=== PATIENT | female | born 1945 | race Caucasian/White ===

== ENCOUNTER 2017-11-14 12:58 | Emergency (ER) | payer OTHER, MEDICARE, BC ==
[~2017-11-14] VITALS: Ht 157.5 cm; Wt 61.2 kg
[~2017-11-14 12:58] MED LIST: AMIO200 PO; AMLO5 PO; ASPI81EC PO; AVISTA; CARV25 PO; CARV3.125 PO; CETI5 PO; DIGO.25 PO; FISH1000 PO; HTN MEDS; LISI20 PO; LISI5 PO; LOPE2C PO; Norco 5-325 Ta1 EACH PO; OMEP20ER PO; OXYACE5T PO; PROM25 PO; RALO60 PO; RHINOCORT ALL8.43 ML NS; RXOXYACE PO; RXPROM25 PO; SPIR25 PO; TORSE20 PO; VITAMIN D31000 UNIT PO; WARF3 PO; WARF4 PO; WARF5 PO; Zofran Odt4 MG SL; [UNRECOGNIZED DRUG - OTHER]; [UNRECOGNIZED DRUG - REMARK]; [UNRECOGNIZED DRUG - REMARK]
[2017-11-14] MEDS ORDERED: ELIQUIS5 MG PO (14:13)
== END 2017-11-14 14:36 | disposition home or self-care (01) ==
LOC: ER 12:58
DX: S61.511A Laceration without foreign body of right wrist, initial encounter (principal); S01.311A Laceration without foreign body of right ear, initial encounter; Z23 Encounter for immunization; I10 Essential (primary) hypertension; I48.91 Unspecified atrial fibrillation; Z79.01 Long term (current) use of anticoagulants; Z88.5 Allergy status to narcotic agent; Z79.899 Other long term (current) drug therapy; V49.50XA Passenger injured in collision with unspecified motor vehicles in traffic accident, initial encounter
CPT/HCPCS: 70450; 71046; 73110; 90714; 93005; 93010; 96372; 99285-25

== ENCOUNTER 2019-10-03 19:19 | Emergency (ER) | payer MEDICARE, BC, OTHER ==
[~2019-10-03] VITALS: Ht 154.9 cm; Wt 68.0 kg
[~2019-10-03 19:19] MED LIST changes: +ELIQUIS5 MG PO
[2019-10-03 19:59] LABS: BASOPHILS ABSOLUTE AUTO 0.04 K/mm3 (0.00-0.23); BASOPHILS PERCENT AUTO 1 % (0-2); EOSINOPHILS ABSOLUTE AUTO 0.03 K/mm3 (0.00-0.68); EOSINOPHILS PERCENT AUTO 0 % (0-6); Hematocrit 43.1 % (33.0-51.0); IMMATURE GRAN ABSOLUTE AUTO 0.03 K/mm3 (0.00-0.10); IMMATURE GRAN PERCENT AUTO 0 % (0-1); LYMPHOCYTES ABSOLUTE AUTO 1.79 K/mm3 (0.84-5.20); LYMPHOCYTES PERCENT AUTO 22 % (21-46); MONOCYTES ABSOLUTE AUTO 0.45 K/mm3 (0.16-1.47); MONOCYTES PERCENT AUTO 6 % (4-13); Mean Corpuscular HGB 28.9 pg (26.0-34.0); Mean Corpuscular HGB Conc 32.5 g/dL (31.5-36.5); Mean Corpuscular Volume 89 fL (80-100); Mean Platelet Volume 11.1 fL (9.1-12.4); NEUTROPHILS ABSOLUTE AUTO 5.75 K/mm3 (1.96-9.15); NEUTROPHILS PERCENT AUTO 71 % (41-73); Platelet Count 246 K/mm3 (150-400); RDW Coefficient Variation 14.4 % (11.7-14.2); RDW Standard Deviation 46.5 fL (35.1-46.3); Red Blood Cell Count 4.85 M/mm3 (3.80-5.20); White Blood Cell Count 8.09 K/mm3 (4.00-11.30)
[2019-10-03 20:26] LABS: Alanine Aminotransfer (ALT/SGP 23 U/L (12-78); Albumin, Blood 3.7 g/dL (3.4-5.0); Albumin/Globulin Ratio 0.9 (0.8-1.8); Alk Phos 79 U/L (50-136); Anion Gap 5 mmol/L (6-16); Aspartate Aminotrans (AST/SGOT 18 U/L (12-37); Bilirubin, Total 0.3 mg/dL (0.1-1.0); Blood Urea Nitrogen 16 mg/dL (8-24); Bun/Creatinine Ratio 19.8 (12.0-20.0); CO2, Blood 24 mmol/L (21-32); Calcium, Blood 8.8 mg/dL (8.5-10.1); Chloride, Blood 103 mmol/L (98-108); Creatinine, Blood 0.81 mg/dL (0.40-1.00); Globulin, Blood 4.1 g/dL (2.2-4.0); Glomerular Filtration Rate >60 (60-); Glucose, Blood 175 mg/dL (70-99); Potassium, Blood 4.2 mmol/L (3.5-5.5); Sodium, Blood 132 mmol/L (136-145); Total Protein, Blood 7.8 g/dL (6.4-8.2); Troponin I <0.015 ng/mL (0.000-0.040)
[2019-10-03 20:39] LABS: Digoxin (Lanoxin) 0.65 ug/mL (0.80-2.00)
== END 2019-10-03 22:20 | disposition home or self-care (01) ==
LOC: ER 19:19
PROVIDERS: Emergency Medicine
DX: I48.92 Unspecified atrial flutter (principal); I48.91 Unspecified atrial fibrillation; I10 Essential (primary) hypertension; Z87.891 Personal history of nicotine dependence; Z88.5 Allergy status to narcotic agent; Z79.899 Other long term (current) drug therapy; Z79.01 Long term (current) use of anticoagulants; Z95.0 Presence of cardiac pacemaker
CPT/HCPCS: 36415; 71046; 80053; 80162; 83690; 84484; 85025; 93005; 93010; 96374; 99285-25; J1160; J7030

== ENCOUNTER 2021-01-27 16:04 | Emergency (ER) | payer MEDICARE, BC, OTHER ==
[~2021-01-27] VITALS: Ht 154.9 cm; Wt 72.6 kg
[~2021-01-27 16:04] MED LIST changes: +Amiodarone HCl200 MG PO; +ERGO50000 PO; +FLAX SEED OIL1000 MG PO; +MONT10T PO; -VITAMIN D31000 UNIT PO
[2021-01-27] MEDS ORDERED: Amiodarone HCl200 MG PO (16:27)
[2021-01-27 16:35] LABS: BASOPHILS ABSOLUTE AUTO 0.04 K/mm3 (0.00-0.23); BASOPHILS PERCENT AUTO 1 % (0-2); EOSINOPHILS ABSOLUTE AUTO 0.07 K/mm3 (0.00-0.68); EOSINOPHILS PERCENT AUTO 1 % (0-6); Hematocrit 41.7 % (33.0-51.0); Hemoglobin 13.4 g/dL (11.5-16.0); IMMATURE GRAN ABSOLUTE AUTO 0.02 K/mm3 (0.00-0.10); IMMATURE GRAN PERCENT AUTO 0 % (0-1); LYMPHOCYTES ABSOLUTE AUTO 1.89 K/mm3 (0.84-5.20); LYMPHOCYTES PERCENT AUTO 24 % (21-46); MONOCYTES ABSOLUTE AUTO 0.72 K/mm3 (0.16-1.47); MONOCYTES PERCENT AUTO 9 % (4-13); Mean Corpuscular HGB 28.2 pg (26.0-34.0); Mean Corpuscular HGB Conc 32.1 g/dL (31.5-36.5); Mean Corpuscular Volume 88 fL (80-100); NEUTROPHILS ABSOLUTE AUTO 5.31 K/mm3 (1.96-9.15); NEUTROPHILS PERCENT AUTO 66 % (41-73); Platelet Count 249 K/mm3 (150-400); RDW Coefficient Variation 14.7 % (11.7-14.2); RDW Standard Deviation 47.6 fL (35.1-46.3); Red Blood Cell Count 4.75 M/mm3 (3.80-5.20); White Blood Cell Count 8.05 K/mm3 (4.00-11.30)
[2021-01-27 16:55] LABS: Albumin, Blood 3.5 g/dL (3.4-5.0); Albumin/Globulin Ratio 0.9 (0.8-1.8); Bilirubin, Total 0.3 mg/dL (0.1-1.0); Bun/Creatinine Ratio 16.8 (12.0-20.0); Calcium, Blood 8.9 mg/dL (8.5-10.1); Creatinine, Blood 0.95 mg/dL (0.40-1.00); Globulin, Blood 3.7 g/dL (2.2-4.0); Potassium, Blood 4.3 mmol/L (3.5-5.5); Total Protein, Blood 7.2 g/dL (6.4-8.2)
== END 2021-01-27 20:17 | disposition home or self-care (01) ==
LOC: ER 16:04
PROVIDERS: Student in an Organized Health Care Education/Training Program
DX: I48.91 Unspecified atrial fibrillation (principal); I10 Essential (primary) hypertension; Z88.5 Allergy status to narcotic agent; Z79.899 Other long term (current) drug therapy; Z79.01 Long term (current) use of anticoagulants
CPT/HCPCS: 80053; 84484; 85025; 92960; 93005; 93010; 96374-59; 99285-25; J2405; J3010; J7030

== ENCOUNTER 2021-05-15 06:15 | Day surgery (SDC) | payer MEDICARE, BC, OTHER ==
[~2021-05-15] VITALS: Ht 157.5 cm; Wt 80.0 kg
--- NOTE | 2021-05-15 08:30 | NUR ---
PT VERBALIZES UNDERSTANDING WRITTEN AND VERBAL INSTRUCTIONS. VSS. IV DC'D. CATH INTACT PRESSURE BANDAGE. PT DC TO HOME VIA / BY WC
== END 2021-05-15 22:37 | disposition home or self-care (01) ==
LOC: MHTC 06:15
DX: I48.0 Paroxysmal atrial fibrillation (principal); I42.0 Dilated cardiomyopathy; I34.0 Nonrheumatic mitral (valve) insufficiency; I10 Essential (primary) hypertension; E66.9 Obesity, unspecified; K21.9 Gastro-esophageal reflux disease without esophagitis; Z95.810 Presence of automatic (implantable) cardiac defibrillator; Z88.5 Allergy status to narcotic agent; Z79.01 Long term (current) use of anticoagulants; Z87.891 Personal history of nicotine dependence; Z68.33 Body mass index [BMI] 33.0-33.9, adult
CPT/HCPCS: 92961; 93005; 93010; J2704; J7120

== ENCOUNTER 2022-04-11 08:27 | Day surgery (SDC) | payer MEDICARE, BC, OTHER ==
[~2022-04-11] VITALS: Ht 154.9 cm; Wt 63.0 kg
--- NOTE | 2022-04-11 09:27 | NUR ---
DR. BARKLEY AND THE AT THE BESIDE TO MEET WITH THE PATIENT PREPROCEDURE. ALL QUESTIONS ANSWERED. CHART REVEIWED.
--- NOTE | 2022-04-11 11:00 | NUR ---
1035 PATIENT RETURNED FROM THE [employer]ER IN A RECLINER AND PLACED ON THE MONITOR, CALL LIGHT IN REACH. SITTING UP IN A RECLINER, DENIES ANY SHORTNESS OF BREATH OR CHEST PRESSURE AT THIS TIME.
--- NOTE | 2022-04-11 11:05 | NUR ---
DR BARKLEY AT THE BEDSIDE AND SPOKE WITH THE FAMILY, PATIENT, AND DAUGHTER. ALL QUESTIONS ANSWERED.
--- NOTE | 2022-04-11 12:08 | NUR ---
PATIENT BLOOD PRESSURE LOW BUT ASYMPTOMATIC. FAMILY IN AND OUT. BEGAN TAKING AIR FROM THE TR BAND, NO BLEEDING NOTED. PLETH 97%.
--- NOTE | 2022-04-11 12:19 | NUR ---
CONTINUE TO REMOVED AIR. NO BLEEDING, NO HEMATOMA.
--- NOTE | 2022-04-11 12:44 | NUR ---
TR BAND IS FLAT. REVEIWED DISCHARGE INSTRUCTIONS WITH THE PATIENT AND HER . FOLLOW UP APPOINTMENT IS 04/25/2022 @ 0830 AM. PATIENT IS INSTRUCTED TO RESTART ELIQUIS IN THE AM.
--- NOTE | 2022-04-11 12:58 | NUR ---
PATIENT IS UP AND OFF MONITOR, TO THE RESTROOM. NO DIZZINESS, NO PAIN NOTED. BACK TO THE BEDSIDE AND DRESSING.
--- NOTE | 2022-04-11 13:23 | NUR ---
PATIENT PIV REMOVED AND CATH TIP INTACT. PRESSURE DRESSING APPLIED. TR BAND REMOVED AND SITE CLEANED AND CLOTH DOT APPLIED. WHITE BOARD REPLACED AND DISCHARGED HOME WITH FOLLOW UP APPOINTMENT AND ALL DISCHARGE INSTRUCTIONS AND MEDICATIONS LISTED. DISCHARGED VIA WHEELCHAIR WITH HEAD DOFFER.
== END 2022-04-11 13:45 | disposition home or self-care (01) ==
LOC: MHTC 08:27
DX: I11.0 Hypertensive heart disease with heart failure (principal); I50.20 Unspecified systolic (congestive) heart failure; I48.0 Paroxysmal atrial fibrillation; Z95.810 Presence of automatic (implantable) cardiac defibrillator; Z88.5 Allergy status to narcotic agent; Z79.01 Long term (current) use of anticoagulants
CPT/HCPCS: 76937; 93454; 99152; 99153; A9270; C1769; C1887; C1894; J1644; J2250; J3010; J7030; J7050; Q9967

== ENCOUNTER 2023-01-15 21:35 | Emergency (ER) | payer MEDICARE, BC, OTHER ==
[~2023-01-15] VITALS: Ht 154.9 cm; Wt 61.2 kg
[2023-01-15 22:09] LABS: BASOPHILS ABSOLUTE AUTO 0.06 K/mm3 (0.00-0.23); BASOPHILS PERCENT AUTO 1 % (0-2); EOSINOPHILS ABSOLUTE AUTO 0.12 K/mm3 (0.00-0.68); EOSINOPHILS PERCENT AUTO 2 % (0-6); Hemoglobin 14.5 g/dL (11.5-16.0); IMMATURE GRAN ABSOLUTE AUTO 0.01 K/mm3 (0.00-0.10); IMMATURE GRAN PERCENT AUTO 0 % (0-1); LYMPHOCYTES ABSOLUTE AUTO 3.03 K/mm3 (0.84-5.20); LYMPHOCYTES PERCENT AUTO 39 % (21-46); MONOCYTES PERCENT AUTO 12 % (4-13); Mean Corpuscular HGB 29.6 pg (26.0-34.0); Mean Corpuscular Volume 90 fL (80-100); Mean Platelet Volume 10.3 fL (9.1-12.4); NEUTROPHILS PERCENT AUTO 47 % (41-73); Platelet Count 222 K/mm3 (150-400); RDW Coefficient Variation 14.4 % (11.7-14.2); RDW Standard Deviation 47.7 fL (35.1-46.3); White Blood Cell Count 7.72 K/mm3 (4.00-11.30)
[2023-01-15 22:32] LABS: Albumin, Blood 3.4 g/dL (3.4-5.0); Albumin/Globulin Ratio 0.9 (0.8-1.8); Bilirubin, Total 0.3 mg/dL (0.1-1.0); Calcium, Blood 8.5 mg/dL (8.5-10.1); Creatinine, Blood 1.05 mg/dL (0.40-1.00); Globulin, Blood 3.9 g/dL (2.2-4.0); Potassium, Blood 4.2 mmol/L (3.5-5.5); Total Protein, Blood 7.3 g/dL (6.4-8.2)
[2023-01-16 00:30] VITALS: BP 111/59
== END 2023-01-16 01:30 | disposition home or self-care (01) ==
LOC: ER 21:35
PROVIDERS: Physician Assistant
DX: I48.0 Paroxysmal atrial fibrillation (principal); I10 Essential (primary) hypertension; Z88.5 Allergy status to narcotic agent; Z91.048 Other nonmedicinal substance allergy status; Z79.01 Long term (current) use of anticoagulants; Z79.899 Other long term (current) drug therapy
CPT/HCPCS: 71046; 80053; 84484; 85025; 93005; 93010; 99285-25

== ENCOUNTER 2024-01-29 19:24 | Emergency (ER) | payer MEDICARE, BC, OTHER ==
[~2024-01-29] VITALS: Ht 152.4 cm; Wt 63.5 kg
[2024-01-29] MEDS ORDERED: Ondansetron HCl 2 MG / ML 2ML Vial IV PRN (19:40)
[2024-01-29 19:56] LABS: BASOPHILS ABSOLUTE AUTO 0.05 K/mm3 (0.00-0.23); BASOPHILS PERCENT AUTO 1 % (0-2); EOSINOPHILS PERCENT AUTO 1 % (0-6); Hematocrit 46.8 % (33.0-51.0); Hemoglobin 15.1 g/dL (11.5-16.0); IMMATURE GRAN ABSOLUTE AUTO 0.02 K/mm3 (0.00-0.10); IMMATURE GRAN PERCENT AUTO 0 % (0-1); LYMPHOCYTES ABSOLUTE AUTO 2.69 K/mm3 (0.84-5.20); LYMPHOCYTES PERCENT AUTO 34 % (21-46); MONOCYTES ABSOLUTE AUTO 0.77 K/mm3 (0.16-1.47); MONOCYTES PERCENT AUTO 10 % (4-13); Mean Corpuscular HGB Conc 32.3 g/dL (31.5-36.5); Mean Corpuscular Volume 90 fL (80-100); Mean Platelet Volume 10.3 fL (9.1-12.4); NEUTROPHILS ABSOLUTE AUTO 4.38 K/mm3 (1.96-9.15); NEUTROPHILS PERCENT AUTO 55 % (41-73); Platelet Count 220 K/mm3 (150-400); RDW Coefficient Variation 15.4 % (11.7-14.2); RDW Standard Deviation 51.1 fL (35.1-46.3); White Blood Cell Count 8.01 K/mm3 (4.00-11.30)
[2024-01-29 20:37] LABS: Albumin, Blood 3.7 g/dL (3.4-5.0); Bilirubin, Total 0.5 mg/dL (0.1-1.0); Bun/Creatinine Ratio 13.9 (12.0-20.0); Calcium, Blood 8.9 mg/dL (8.5-10.1); Creatinine, Blood 1.01 mg/dL (0.40-1.00); Free Thyroxine 1.61 ng/dL (0.70-1.60); Globulin, Blood 3.8 g/dL (2.2-4.0); Potassium, Blood 4.1 mmol/L (3.5-5.5); Thyroid Stimulating Hormone 4.24 uIU/mL (0.360-4.800); Total Protein, Blood 7.5 g/dL (6.4-8.2)
[2024-01-29 20:43] LABS: Prothrombin Time Results 10.7 Sec (9.7-11.5)
[2024-01-29 20:45] VITALS: BP 99/60
== END 2024-01-29 21:27 | disposition home or self-care (01) ==
LOC: ER 19:24
PROVIDERS: Student in an Organized Health Care Education/Training Program
DX: R00.2 Palpitations (principal); I10 Essential (primary) hypertension; Z79.899 Other long term (current) drug therapy; Z88.5 Allergy status to narcotic agent; Z91.048 Other nonmedicinal substance allergy status
CPT/HCPCS: 71046; 80053; 83690; 84439; 84443; 84484; 85025; 85610; 93005; 93010; 99285-25

== ENCOUNTER 2024-09-01 16:15 | Emergency (ER) | payer MEDICARE, BC, OTHER ==
[~2024-09-01] VITALS: Ht 154.9 cm; Wt 65.8 kg
[2024-09-01 16:25] VITALS: BP 151/89
[2024-09-01 16:52] LABS: BASOPHILS ABSOLUTE AUTO 0.05 K/mm3 (0.00-0.23); BASOPHILS PERCENT AUTO 1 % (0-2); EOSINOPHILS ABSOLUTE AUTO 0.11 K/mm3 (0.00-0.68); EOSINOPHILS PERCENT AUTO 2 % (0-6); Hematocrit 43.7 % (33.0-51.0); Hemoglobin 14.4 g/dL (11.5-16.0); IMMATURE GRAN ABSOLUTE AUTO 0.03 K/mm3 (0.00-0.10); IMMATURE GRAN PERCENT AUTO 0 % (0-1); LYMPHOCYTES ABSOLUTE AUTO 2.36 K/mm3 (0.84-5.20); LYMPHOCYTES PERCENT AUTO 32 % (21-46); MONOCYTES ABSOLUTE AUTO 0.74 K/mm3 (0.16-1.47); MONOCYTES PERCENT AUTO 10 % (4-13); Mean Corpuscular HGB 29.6 pg (26.0-34.0); Mean Corpuscular Volume 90 fL (80-100); Mean Platelet Volume 10.2 fL (9.1-12.4); NEUTROPHILS ABSOLUTE AUTO 4.19 K/mm3 (1.96-9.15); NEUTROPHILS PERCENT AUTO 56 % (41-73); Platelet Count 212 K/mm3 (150-400); RDW Coefficient Variation 15.2 % (11.7-14.2); RDW Standard Deviation 50.3 fL (35.1-46.3); Red Blood Cell Count 4.87 M/mm3 (3.80-5.20); White Blood Cell Count 7.48 K/mm3 (4.00-11.30)
[2024-09-01 17:17] LABS: Albumin, Blood 3.6 g/dL (3.4-5.0); Bilirubin, Total 0.3 mg/dL (0.1-1.0); Bun/Creatinine Ratio 18.8 (12.0-20.0); Calcium, Blood 8.9 mg/dL (8.5-10.1); Creatinine, Blood 1.01 mg/dL (0.40-1.00); Globulin, Blood 3.6 g/dL (2.2-4.0); Potassium, Blood 4.1 mmol/L (3.5-5.5); Total Protein, Blood 7.2 g/dL (6.4-8.2)
== END 2024-09-01 18:09 | disposition home or self-care (01) ==
LOC: ER 16:15
PROVIDERS: Emergency Medicine
DX: I48.0 Paroxysmal atrial fibrillation (principal)
CPT/HCPCS: 71046; 80053; 84484; 85025; 93005; 93010; 99285-25

== ENCOUNTER 2024-09-20 16:30 | Emergency (ER) | payer MEDICARE, BC, OTHER ==
[~2024-09-20] VITALS: Ht 154.9 cm; Wt 65.8 kg
[2024-09-20] MEDS ORDERED: Diltiazem HCl 5 MG / ML 5ML Vial IV ONE (16:50)
[2024-09-20 17:28] LABS: Albumin, Blood 3.1 g/dL (3.4-5.0); Albumin/Globulin Ratio 0.6 (0.8-1.8); Bilirubin, Total 0.5 mg/dL (0.1-1.0); Bun/Creatinine Ratio 15.9 (12.0-20.0); Calcium, Blood 9.6 mg/dL (8.5-10.1); Creatinine, Blood 1.13 mg/dL (0.40-1.00); Globulin, Blood 5.3 g/dL (2.2-4.0); Potassium, Blood 4.2 mmol/L (3.5-5.5); Total Protein, Blood 8.4 g/dL (6.4-8.2)
[2024-09-20 18:05] LABS: BASOPHILS ABSOLUTE AUTO 0.04 K/mm3 (0.00-0.23); BASOPHILS PERCENT AUTO 1 % (0-2); EOSINOPHILS ABSOLUTE AUTO 0.11 K/mm3 (0.00-0.68); EOSINOPHILS PERCENT AUTO 1 % (0-6); Hematocrit 43.6 % (33.0-51.0); Hemoglobin 14.2 g/dL (11.5-16.0); IMMATURE GRAN ABSOLUTE AUTO 0.03 K/mm3 (0.00-0.10); IMMATURE GRAN PERCENT AUTO 0 % (0-1); LYMPHOCYTES ABSOLUTE AUTO 2.92 K/mm3 (0.84-5.20); LYMPHOCYTES PERCENT AUTO 36 % (21-46); MONOCYTES PERCENT AUTO 10 % (4-13); Mean Corpuscular HGB 29.5 pg (26.0-34.0); Mean Corpuscular HGB Conc 32.6 g/dL (31.5-36.5); Mean Corpuscular Volume 91 fL (80-100); NEUTROPHILS ABSOLUTE AUTO 4.14 K/mm3 (1.96-9.15); NEUTROPHILS PERCENT AUTO 51 % (41-73); Platelet Count 226 K/mm3 (150-400); RDW Coefficient Variation 14.9 % (11.7-14.2); RDW Standard Deviation 49.7 fL (35.1-46.3); Red Blood Cell Count 4.82 M/mm3 (3.80-5.20); White Blood Cell Count 8.04 K/mm3 (4.00-11.30)
[2024-09-20 18:27] VITALS: BP 112/66
[2024-09-20] MEDS ORDERED: ENTRESTO 24 MG1 EAC3 PO (23:43)
[2024-09-20] MEDS ORDERED: JARDIANCE10 MG PO (23:43)
[2024-09-21] MEDS ORDERED: DIGOX125 MC1 PO (13:08)
== END 2024-09-20 18:28 | disposition home or self-care (01) ==
LOC: ER 16:30
PROVIDERS: Emergency Medicine
DX: I48.91 Unspecified atrial fibrillation (principal); I10 Essential (primary) hypertension; Z79.01 Long term (current) use of anticoagulants; Z79.899 Other long term (current) drug therapy; Z88.5 Allergy status to narcotic agent; Z91.048 Other nonmedicinal substance allergy status; Z87.891 Personal history of nicotine dependence; Z95.810 Presence of automatic (implantable) cardiac defibrillator
CPT/HCPCS: 71045; 80053; 85025; 93005; 93010; 96374; 99285-25

== ENCOUNTER 2024-09-20 21:53 | Inpatient (IN) | payer MEDICARE, BC, OTHER ==
[~2024-09-20] VITALS: Ht 154.9 cm; Wt 71.2 kg
[2024-09-20] MEDS ORDERED: Amiodarone HCl 450 MG in Dextrose 5% 500 ML IV SCH (22:25)
[2024-09-20 22:45] LABS: BASOPHILS ABSOLUTE AUTO 0.05 K/mm3 (0.00-0.23); BASOPHILS PERCENT AUTO 1 % (0-2); EOSINOPHILS ABSOLUTE AUTO 0.08 K/mm3 (0.00-0.68); EOSINOPHILS PERCENT AUTO 1 % (0-6); Hematocrit 43.3 % (33.0-51.0); Hemoglobin 14.3 g/dL (11.5-16.0); IMMATURE GRAN ABSOLUTE AUTO 0.03 K/mm3 (0.00-0.10); IMMATURE GRAN PERCENT AUTO 0 % (0-1); LYMPHOCYTES ABSOLUTE AUTO 2.33 K/mm3 (0.84-5.20); LYMPHOCYTES PERCENT AUTO 27 % (21-46); MONOCYTES PERCENT AUTO 9 % (4-13); Mean Corpuscular HGB 29.7 pg (26.0-34.0); Mean Corpuscular Volume 90 fL (80-100); Mean Platelet Volume 10.7 fL (9.1-12.4); NEUTROPHILS ABSOLUTE AUTO 5.36 K/mm3 (1.96-9.15); NEUTROPHILS PERCENT AUTO 62 % (41-73); Platelet Count 232 K/mm3 (150-400); RDW Coefficient Variation 14.9 % (11.7-14.2); RDW Standard Deviation 49.5 fL (35.1-46.3); Red Blood Cell Count 4.81 M/mm3 (3.80-5.20); White Blood Cell Count 8.65 K/mm3 (4.00-11.30)
[2024-09-20 23:06] LABS: Albumin, Blood 3.4 g/dL (3.4-5.0); Bilirubin, Total 0.4 mg/dL (0.1-1.0); Bun/Creatinine Ratio 16.4 (12.0-20.0); Calcium, Blood 8.6 mg/dL (8.5-10.1); Creatinine, Blood 1.28 mg/dL (0.40-1.00); Globulin, Blood 3.4 g/dL (2.2-4.0); Magnesium, Blood 2.1 mg/dL (1.6-2.4); Potassium, Blood 4.3 mmol/L (3.5-5.5); Total Protein, Blood 6.8 g/dL (6.4-8.2)
[2024-09-20] MEDS ORDERED: ENTRESTO 24 MG1 EAC3 PO (23:43)
[2024-09-20] MEDS ORDERED: JARDIANCE10 MG PO (23:43)
[2024-09-20 23:45] VITALS: BP 99/58
[2024-09-21] VITALS (7 sets, daily range): BP systolic 112–132; BP diastolic 63–89
[2024-09-21 04:48] LABS: BASOPHILS ABSOLUTE AUTO 0.03 K/mm3 (0.00-0.23); BASOPHILS PERCENT AUTO 0 % (0-2); EOSINOPHILS ABSOLUTE AUTO 0.08 K/mm3 (0.00-0.68); EOSINOPHILS PERCENT AUTO 1 % (0-6); Hematocrit 42.2 % (33.0-51.0); Hemoglobin 13.6 g/dL (11.5-16.0); IMMATURE GRAN ABSOLUTE AUTO 0.03 K/mm3 (0.00-0.10); IMMATURE GRAN PERCENT AUTO 0 % (0-1); LYMPHOCYTES ABSOLUTE AUTO 2.73 K/mm3 (0.84-5.20); LYMPHOCYTES PERCENT AUTO 34 % (21-46); MONOCYTES ABSOLUTE AUTO 0.73 K/mm3 (0.16-1.47); MONOCYTES PERCENT AUTO 9 % (4-13); Mean Corpuscular HGB 29.8 pg (26.0-34.0); Mean Corpuscular HGB Conc 32.2 g/dL (31.5-36.5); Mean Corpuscular Volume 92 fL (80-100); Mean Platelet Volume 11.1 fL (9.1-12.4); NEUTROPHILS ABSOLUTE AUTO 4.53 K/mm3 (1.96-9.15); NEUTROPHILS PERCENT AUTO 56 % (41-73); Platelet Count 212 K/mm3 (150-400); RDW Coefficient Variation 15.1 % (11.7-14.2); RDW Standard Deviation 51.3 fL (35.1-46.3); Red Blood Cell Count 4.57 M/mm3 (3.80-5.20); White Blood Cell Count 8.13 K/mm3 (4.00-11.30)
[2024-09-21 05:15] LABS: Free Thyroxine 1.2 ng/dL (0.70-1.60); Thyroid Stimulating Hormone 5.1 uIU/mL (0.360-4.800)
[2024-09-21 05:16] LABS: Albumin/Globulin Ratio 0.9 (0.8-1.8); Bilirubin, Total 0.3 mg/dL (0.1-1.0); Bun/Creatinine Ratio 19.3 (12.0-20.0); Calcium, Blood 8.4 mg/dL (8.5-10.1); Creatinine, Blood 1.09 mg/dL (0.40-1.00); Globulin, Blood 3.3 g/dL (2.2-4.0); Potassium, Blood 4.3 mmol/L (3.5-5.5); Total Protein, Blood 6.3 g/dL (6.4-8.2)
--- NOTE | 2024-09-21 06:02 | NUR ---
SHIFT SUMMARY PT HAS TOLERATED NIGHT WELL AFTER BEING ADMITTED TO PCU IN THE LATE EVENING. PT IS ALERT AND ORIENTED, RESTING COMFORTABLY IN ROOM AT THIS TIME. PT IS NOT COMPLAINING OF CHEST PAIN BUT DOES STATE THAT HER HEART FEELS LIKE IT IS FLUTTERING. PT IS ON ROOM AIR WITH CLEAR LUNG SOUNDS. BLOOD PRESSURES ARE STABLE AND HEART RATE HAS BEEN IN THE 90-110s OVERNIGHT. PTS PACEMAKER HAS BEEN SPIKING AT ODD TIMES. PHYSICIAN WAS INFORMED AND PACER WAS INTERIGATED. PT HAS BEEN ABLE TO STAND AND PIVOT TO BEDSIDE COMMODE TO VOID TWICE DURING THIS SHIFT WITHOUT COMPLICATION. WILL CONTINUE TO MONITOR UNTIL REPORT PASSED TO DAY SHIFT TEAM.
--- NOTE | 2024-09-21 07:59 | NUR ---
DURING BEDSIDE SHIFT REPORRT THIS RN WAS ASSESSING THE PT'S LINES AND GTT'S. LAC AMIO GTT WAS FIRM, RED, AND TENDER. GTT STOPPED. WARM COOMPRESS APPLIED, LEFT ARM ELEVATED, SITE OUTLINED, AND DR. LEONARD MADE AWARE. A NEW IV WAS STARTED IN THE PT'S RFA AND AMIO IS CONTINUING TO INFUSING AT 16.7 (HALF RATE). THE LAC IV WAS NOT PULLED D/T POSSIBLE NEED FOR ANTIDOTE. SEE NOTES FOR UPDATES.
[2024-09-21] MEDS ORDERED: Apixaban 5 MG Tab PO SCH (09:00)
--- NOTE | 2024-09-21 12:41 | NUR ---
PT MOVED FORM PCU 03 TO PCU 02. FAMILY AT BEDSIDE. ALL BELONGINGS TRANSFERED TO PCU 02 WITH THE PT. SEE NOTES FOR UPDATES.
[2024-09-21] MEDS ORDERED: DIGOX125 MC1 PO (13:08)
--- NOTE | 2024-09-21 14:25 | NUR ---
TELE CHANGED PT HAS BEEN AFIB 70'S ON AN AMIO GTT ALL DAY. AT ABOUT 1336 THE PT WENT INTO AFIB RVR AND HAD RUNS OF VTACH, PACEMAKER OVERDRIVE, AND SHE WAS HAVING CHEST PALPITATIONS. THIS RN CALL DR. MEJIA, AND AN EKG WAS OBTAINED AND CARDIOLOGY WAS CONSULTED. SEE NOTES FOR UPDATES.
[2024-09-21] MEDS ORDERED: Amiodarone HCl 200 MG Tab PO SCH ×2 (14:37→15:00)
[2024-09-21] MEDS ORDERED: Digoxin 0.25 MG Tab PO ONE (15:40)
--- NOTE | 2024-09-21 16:43 | NUR ---
DR. QUINTERO CAME TO THE PT'S BEDSIDE AND ADJUSTED SETTINGS ON THE PT'S PACE MAKER. AMIO GTT WAS TURNED OFF IN THE ROOM AND HE DID NOT WANT TO TRANSITION TO ORAL AMIO. PO DIGOXIN AND METOPROLOL SUCC WAS STARTED, COREG D/C'D. PT AND EVAN WERE UPDATED ON CARE. CURRENTLY THE PT IS AFIB 90'S ON TELE. BP STABLE. SEE NOTES FOR UPDATES.
[2024-09-21] MEDS ORDERED: Carvedilol 25 MG Tab PO SCH (17:00)
--- NOTE | 2024-09-21 17:18 | NUR ---
SHIFT SUMMARY PT REMAINS A&OX4, CALLS APPROPRAITELY, IND TO THE BATHROOM, AND MAKES HER NEEDS KNOWN. SHE HAS HAD SOME CARDIAC EVENTS, SEE PREVIOUS NOTES AND CONSULT NOTE FORM DR. QUINTERO. CURRENTLY THE PT IS AFIB 90'S-100'S ON TELE, BP REMAINS STABLE. CURRENTLY SHE DENIES ANY ANGINA, PALPITATIONS, OR CHEST PRESSURE. SHE REMAINS ON RA W/ SP02 >93% AND SHE DENIES ANY SOB. THE PT HAS HAD MULTIPLE FAMILY MEMBERS COME TO BEDSIDE AND THEY HAVE BEEN UPDATED ON CARE. SEE NOTES FOR ANY UPDATES.
[2024-09-21] MEDS ORDERED: Sacubitril/Valsartan 24 MG-26 MG Tab PO SCH (21:00)
[2024-09-21] MEDS ORDERED: Metoprolol Succinate 50 MG TABCR PO SCH (21:00)
[2024-09-21] MEDS ORDERED: Digoxin 0.25 MG Tab PO SCH (21:30)
[2024-09-22 03:31] VITALS: BP 111/61
[2024-09-22 03:55] LABS: BASOPHILS ABSOLUTE AUTO 0.05 K/mm3 (0.00-0.23); BASOPHILS PERCENT AUTO 1 % (0-2); EOSINOPHILS ABSOLUTE AUTO 0.11 K/mm3 (0.00-0.68); EOSINOPHILS PERCENT AUTO 1 % (0-6); Hematocrit 42.7 % (33.0-51.0); IMMATURE GRAN ABSOLUTE AUTO 0.04 K/mm3 (0.00-0.10); IMMATURE GRAN PERCENT AUTO 1 % (0-1); LYMPHOCYTES ABSOLUTE AUTO 2.94 K/mm3 (0.84-5.20); LYMPHOCYTES PERCENT AUTO 34 % (21-46); MONOCYTES ABSOLUTE AUTO 0.83 K/mm3 (0.16-1.47); MONOCYTES PERCENT AUTO 10 % (4-13); Mean Corpuscular HGB 30.1 pg (26.0-34.0); Mean Corpuscular HGB Conc 32.8 g/dL (31.5-36.5); Mean Corpuscular Volume 92 fL (80-100); Mean Platelet Volume 10.7 fL (9.1-12.4); NEUTROPHILS ABSOLUTE AUTO 4.65 K/mm3 (1.96-9.15); NEUTROPHILS PERCENT AUTO 54 % (41-73); Platelet Count 199 K/mm3 (150-400); RDW Coefficient Variation 15.4 % (11.7-14.2); RDW Standard Deviation 51.9 fL (35.1-46.3); Red Blood Cell Count 4.65 M/mm3 (3.80-5.20); White Blood Cell Count 8.62 K/mm3 (4.00-11.30)
[2024-09-22 03:56] LABS: Bun/Creatinine Ratio 22.9 (12.0-20.0); Calcium, Blood 8.6 mg/dL (8.5-10.1); Creatinine, Blood 0.96 mg/dL (0.40-1.00)
--- NOTE | 2024-09-22 05:57 | NUR ---
PATIENT IS ALERT AND ORIENTED X4. HR IN THE 70'S A PACED. DENIES CHEST PAIN/PRESSURE/SOB. DIGOXIN PO ADMINISTERED PER EMR. ON RA WITH OXYGEN SATURATION >95. AMBULATES INDEPENDENTLY TO THE BATHROOM WITH STABLE GAIT. CALLS APPROPRIATELY. RESTING IN BED WIHT CALL LIGHT WITHIN REACH.
[2024-09-22] MEDS ORDERED: Omeprazole 20 MG CapCR PO SCH (06:00)
[2024-09-22 08:14] VITALS: BP 123/72
[2024-09-22] MEDS ORDERED: Empagliflozin 10 MG TAB PO SCH (09:00)
[2024-09-22] MEDS ORDERED: Spironolactone 25 MG Tab PO SCH (09:00)
[2024-09-22] MEDS ORDERED: Digoxin 0.125 MG Tab PO SCH (09:00)
[2024-09-22] MEDS ORDERED: Omega-3 Acid Ethyl Esters 1,000 MG CAP PO SCH (09:00)
[2024-09-22] MEDS ORDERED: METO50ER PO (10:53)
[2024-09-22 11:15] VITALS: BP 93/65
--- NOTE | 2024-09-22 11:18 | NUR ---
MORNING SUMMARY THE PT IS A&OX4, CALLS APPRPAITELY, IND IN THE ROOM, AND MAKES HER NEEDS KNOWN. ON TELE THE PT HAS BEEN APAC/SR 70'S. BP STABLE. CARDIOLOGY CLEARED THE PT FOR DISCHARGE. SHE REMAINS ON RA AND DENIES ANY SOB. NO ACUTE EVETNS THIS MORNING. PLAN FOR DISCHARGE. AWAITING FOR PT'S EVAN TO SHOW UP FOR A RIDE. SEE NOTES FOR UPDATES.
== END 2024-09-22 11:50 | disposition home or self-care (01) | DRG 309 ==
LOC: ER 21:53 → ERHOLD 21:54 → PCU 21:54
PROVIDERS: Emergency Medicine; Student in an Organized Health Care Education/Training Program; ADMIT Internal Medicine
DX: I48.0 Paroxysmal atrial fibrillation (principal); I50.22 Chronic systolic (congestive) heart failure; E03.9 Hypothyroidism, unspecified; F17.210 Nicotine dependence, cigarettes, uncomplicated; I11.0 Hypertensive heart disease with heart failure; Z88.5 Allergy status to narcotic agent; Z91.048 Other nonmedicinal substance allergy status; Z79.899 Other long term (current) drug therapy; Z79.01 Long term (current) use of anticoagulants; Z95.0 Presence of cardiac pacemaker
CPT/HCPCS: 36415; 80048; 80053; 83735; 83880; 84439; 84443; 84484; 85025; 93005; 93010; 96365; 96375; 99285-25; A9270; G0378; J0282; J7060

== ENCOUNTER 2024-12-17 19:04 | Observation (INO) | payer MEDICARE, BC, OTHER ==
[~2024-12-17] VITALS: Ht 154.9 cm; Wt 72.3 kg
[~2024-12-17 19:04] MED LIST changes: +DIGOX125 MC1 PO; +ENTRESTO 24 MG1 EAC3 PO; +JARDIANCE10 MG PO; +METO50ER PO
[2024-12-17 19:56] LABS: BASOPHILS ABSOLUTE AUTO 0.05 K/mm3 (0.00-0.23); BASOPHILS PERCENT AUTO 1 % (0-2); EOSINOPHILS ABSOLUTE AUTO 0.07 K/mm3 (0.00-0.68); EOSINOPHILS PERCENT AUTO 1 % (0-6); Hematocrit 46.8 % (33.0-51.0); Hemoglobin 15.5 g/dL (11.5-16.0); IMMATURE GRAN ABSOLUTE AUTO 0.05 K/mm3 (0.00-0.10); IMMATURE GRAN PERCENT AUTO 1 % (0-1); LYMPHOCYTES ABSOLUTE AUTO 2.68 K/mm3 (0.84-5.20); LYMPHOCYTES PERCENT AUTO 33 % (21-46); MONOCYTES ABSOLUTE AUTO 0.82 K/mm3 (0.16-1.47); MONOCYTES PERCENT AUTO 10 % (4-13); Mean Corpuscular HGB Conc 33.1 g/dL (31.5-36.5); Mean Corpuscular Volume 88 fL (80-100); NEUTROPHILS ABSOLUTE AUTO 4.36 K/mm3 (1.96-9.15); NEUTROPHILS PERCENT AUTO 54 % (41-73); NRBC ABSOLUTE 0.00 K/mm3 (0.00-0.02); NRBC Auto 0.0 /100 WBC (0.0-0.2); Platelet Count 239 K/mm3 (150-400); RDW Coefficient Variation 14.8 % (11.7-14.2); RDW Standard Deviation 48.4 fL (35.1-46.3)
[2024-12-17 20:42] LABS: Alanine Aminotransfer (ALT/SGP 38 U/L (12-78); Albumin, Blood 3.4 g/dL (3.4-5.0); Albumin/Globulin Ratio 1.0 (0.8-1.8); Anion Gap 10 mmol/L (3-11); Aspartate Aminotrans (AST/SGOT 28 U/L (12-37); Bilirubin, Total 0.4 mg/dL (0.1-1.0); Blood Urea Nitrogen 31 mg/dL (8-24); CO2, Blood 25 mmol/L (21-32); Calcium, Blood 8.3 mg/dL (8.5-10.1); Chloride, Blood 97 mmol/L (98-108); Creatinine, Blood 1.32 mg/dL (0.40-1.00); Globulin, Blood 3.5 g/dL (2.2-4.0); Glucose, Blood 170 mg/dL (70-99); Magnesium, Blood 2.1 mg/dL (1.6-2.4); Potassium, Blood 3.6 mmol/L (3.5-5.5); Sodium, Blood 128 mmol/L (136-145); Thyroid Stimulating Hormone 4.530 uIU/mL (0.360-4.800); Total Protein, Blood 6.9 g/dL (6.4-8.2)
[2024-12-17] MEDS ORDERED: NS 1,000 ML IV SCH ×2 (20:55→22:50)
[2024-12-17] MEDS ORDERED: Diltiazem HCl 5 MG / ML 5ML Vial IV ONE ×2 (21:05→21:20)
[2024-12-17] MEDS ORDERED: Mag Sulfate 1 GM/D5% 100ML 100 ML IV ONE (22:30)
[2024-12-17] MEDS ORDERED: Amiodarone HCl 450 MG in NS 250 ML IV SCH (22:50)
[2024-12-18] VITALS (16 sets, daily range): BP systolic 90–119; BP diastolic 50–70
[2024-12-18] MEDS ORDERED: Amiodarone HCl 150 MG in NS 100 ML IV ONE (00:15)
[2024-12-18] MEDS ORDERED: NS 500 ML IV SCH (03:00)
[2024-12-18] MEDS ORDERED: METO100 PO (03:10)
[2024-12-18] MEDS ORDERED: Amiodarone HCl200 MG PO (03:13)
[2024-12-18] MEDS ORDERED: TORS10 PO (03:13)
--- NOTE | 2024-12-18 05:21 | NUR ---
SHIFT SUMMARY PT ALERT AND ORIENTED X 4. PT ARRIVED TO ED. SKIN SWARM DONE WITH HUMPHREY BRUNER. NO ABNORMALITIES. PT WITH AMIODARONE GTT INFUSING WITH HR V PACED IN 110S-120S. PT ON RA WITH CLEAR LUNG SOUNDS, DENIES SOB. ADEQUATE URINE OUTPUT. MIDODRINE STARTED FOR SOFT BPS. CALL MALDONADO WITHIN REACH AND PT ABLE TO MAKE NEEDS KNOWN.
[2024-12-18 06:21] LABS: BASOPHILS ABSOLUTE AUTO 0.04 K/mm3 (0.00-0.23); BASOPHILS PERCENT AUTO 0 % (0-2); EOSINOPHILS ABSOLUTE AUTO 0.04 K/mm3 (0.00-0.68); EOSINOPHILS PERCENT AUTO 0 % (0-6); Hematocrit 42.2 % (33.0-51.0); Hemoglobin 13.7 g/dL (11.5-16.0); IMMATURE GRAN ABSOLUTE AUTO 0.06 K/mm3 (0.00-0.10); IMMATURE GRAN PERCENT AUTO 1 % (0-1); LYMPHOCYTES ABSOLUTE AUTO 2.36 K/mm3 (0.84-5.20); LYMPHOCYTES PERCENT AUTO 21 % (21-46); MONOCYTES ABSOLUTE AUTO 1.04 K/mm3 (0.16-1.47); MONOCYTES PERCENT AUTO 9 % (4-13); Mean Corpuscular HGB Conc 32.5 g/dL (31.5-36.5); Mean Corpuscular Volume 90 fL (80-100); NEUTROPHILS ABSOLUTE AUTO 7.70 K/mm3 (1.96-9.15); NEUTROPHILS PERCENT AUTO 68 % (41-73); NRBC ABSOLUTE 0.00 K/mm3 (0.00-0.02); NRBC Auto 0.0 /100 WBC (0.0-0.2); Platelet Count 209 K/mm3 (150-400); RDW Coefficient Variation 15.1 % (11.7-14.2); RDW Standard Deviation 50.0 fL (35.1-46.3)
[2024-12-18 06:37] LABS: Anion Gap 7.0 mmol/L (3-11); Blood Urea Nitrogen 20.0 mg/dL (8-24); CO2, Blood 22.0 mmol/L (21-32); Calcium, Blood 7.3 mg/dL (8.5-10.1); Chloride, Blood 109.0 mmol/L (98-108); Creatinine, Blood 0.95 mg/dL (0.40-1.00); Glucose, Blood 90.0 mg/dL (70-99); Potassium, Blood 4.4 mmol/L (3.5-5.5); Sodium, Blood 134.0 mmol/L (136-145)
--- NOTE | 2024-12-18 13:59 | NUR ---
DISCHARGE HOME PT DISCHARGED HOME. DISCHARGE INFORMATION REVIEWED. 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 PT ACCOMPANIED OUT BY W/C. CARE ONGOING.
== END 2024-12-18 13:39 | disposition home or self-care (01) ==
LOC: ER 19:04 → PCU 19:05
PROVIDERS: Family Medicine; Physician Assistant; ADMIT Student in an Organized Health Care Education/Training Program
DX: I48.20 Chronic atrial fibrillation, unspecified (principal); I11.0 Hypertensive heart disease with heart failure; I50.22 Chronic systolic (congestive) heart failure; Z95.810 Presence of automatic (implantable) cardiac defibrillator; Z79.01 Long term (current) use of anticoagulants; Z79.899 Other long term (current) drug therapy; Z87.891 Personal history of nicotine dependence; Z88.5 Allergy status to narcotic agent; Z91.09 Other allergy status, other than to drugs and biological substances
CPT/HCPCS: 36415; 71046; 80048; 80053; 80162; 83735; 84439; 84443; 84484; 85025; 93005; 93010; 96365; 96366; 96367; 96375; 96376; 99285-25; A9270; G0378; J0282; J3475; J7030; J7050

== ENCOUNTER 2025-01-04 06:30 | Emergency (ER) | payer MEDICARE, BC, OTHER ==
[~2025-01-04] VITALS: Ht 154.9 cm; Wt 65.8 kg
[~2025-01-04 06:30] MED LIST changes: +METO100 PO; +TORS10 PO
[2025-01-04 09:02] VITALS: BP 124/74
== END 2025-01-04 09:03 | disposition home or self-care (01) ==
LOC: ER 06:30
DX: R33.0 Drug induced retention of urine (principal); T41.45XA Adverse effect of unspecified anesthetic, initial encounter; Z87.891 Personal history of nicotine dependence; Z79.899 Other long term (current) drug therapy; I48.91 Unspecified atrial fibrillation; I10 Essential (primary) hypertension; Z88.5 Allergy status to narcotic agent; Z88.8 Allergy status to other drugs, medicaments and biological substances
CPT/HCPCS: 51702; 51798; 87086; 99283

== ENCOUNTER 2025-01-06 08:19 | Emergency (ER) | payer MEDICARE, BC, OTHER ==
[~2025-01-06] VITALS: Ht 154.9 cm; Wt 67.1 kg
[2025-01-06 10:45] VITALS: BP 117/62
== END 2025-01-06 11:11 | disposition home or self-care (01) ==
LOC: ER 08:19
DX: Z46.6 Encounter for fitting and adjustment of urinary device (principal); I11.0 Hypertensive heart disease with heart failure; I50.20 Unspecified systolic (congestive) heart failure; I48.91 Unspecified atrial fibrillation; Z87.891 Personal history of nicotine dependence; Z79.899 Other long term (current) drug therapy; Z88.5 Allergy status to narcotic agent; Z91.048 Other nonmedicinal substance allergy status
CPT/HCPCS: 99283